=== PATIENT | male | born 1940 | race Two or more races ===

== ENCOUNTER 2018-04-24 09:45 | Outpatient (CLI) | payer OTHER ==
[~2018-04-24 09:45] MED LIST: ASA81 MG PO
== END 2018-04-24 09:56 | disposition home or self-care (01) ==
LOC: SONOGRAMA 09:45
DX: R10.2 Pelvic and perineal pain (principal); R19.7 Diarrhea, unspecified; K40.90 Unilateral inguinal hernia, without obstruction or gangrene, not specified as recurrent; N41.0 Acute prostatitis; I10 Essential (primary) hypertension; E78.89 Other lipoprotein metabolism disorders; M54.5 Low back pain; D64.89 Other specified anemias

== ENCOUNTER 2019-04-30 11:42 | Emergency (ER) | payer OTHER ==
[~2019-04-30] VITALS: Ht 172.7 cm; Wt 63.5 kg
== END 2019-04-30 12:56 | disposition home or self-care (01) ==
LOC: ER 11:42
DX: L02.212 Cutaneous abscess of back [any part, except buttock and flank] (principal); B37.89 Other sites of candidiasis; B96.89 Other specified bacterial agents as the cause of diseases classified elsewhere

== ENCOUNTER 2021-04-27 09:00 | Outpatient (CLI) | payer OTHER | END 2021-04-27 09:30 | disposition home or self-care (01) | LOC: PPH VACUNA 09:00 | PROVIDERS: ATTEND Emergency Medicine Pediatric Emergency Medicine | DX: Z23 Encounter for immunization (principal) ==

== ENCOUNTER 2021-10-16 08:00 | Outpatient (CLI) | payer OTHER | END 2021-10-16 08:30 | disposition home or self-care (01) | LOC: PPH VACUNA 08:00 | PROVIDERS: ATTEND Emergency Medicine Pediatric Emergency Medicine | DX: Z23 Encounter for immunization (principal) ==

== ENCOUNTER 2021-11-09 09:17 | Emergency (ER) | payer OTHER ==
[~2021-11-09] VITALS: Ht 167.6 cm; Wt 69.4 kg
== END 2021-11-09 11:42 | disposition home or self-care (01) ==
LOC: ER 09:17
DX: F41.9 Anxiety disorder, unspecified (principal); I10 Essential (primary) hypertension; Z88.0 Allergy status to penicillin

== ENCOUNTER 2022-07-02 10:17 | Outpatient (CLI) | payer OTHER | END 2022-07-02 10:32 | disposition home or self-care (01) | LOC: PPH VACUNA 10:17 | PROVIDERS: ATTEND Emergency Medicine Pediatric Emergency Medicine | DX: Z23 Encounter for immunization (principal) ==

== ENCOUNTER 2022-08-16 13:27 | Outpatient (CLI) | payer OTHER | END 2022-08-16 13:30 | disposition home or self-care (01) | LOC: NUCLEAR 13:27 | PROVIDERS: ATTEND Internal Medicine | DX: M81.0 Age-related osteoporosis without current pathological fracture (principal) ==

== ENCOUNTER 2022-12-12 10:30 | Emergency (ER) | payer OTHER ==
[~2022-12-12] VITALS: Ht 170.2 cm; Wt 61.2 kg
[2022-12-12] MEDS ORDERED: NORVASC2.5 M1 PO (10:37)
[2022-12-12] MEDS ORDERED: ATORVASTATIN CA10 MG PO (10:38)
[2022-12-12] MEDS ORDERED: TAMS0.4C PO (10:38)
[2022-12-12] MEDS ORDERED: FINASTERIDE1 MG PO (10:38)
[2022-12-12] MEDS ORDERED: ZYRTEC10 MG PO (12:46)
[2022-12-12] MEDS ORDERED: TUSNEL LIQUID178 ML PO (12:46)
== END 2022-12-12 12:52 | disposition home or self-care (01) ==
LOC: ER 10:30
DX: R05.9 Cough, unspecified (principal); N40.0 Benign prostatic hyperplasia without lower urinary tract symptoms; I10 Essential (primary) hypertension; Z20.822 Contact with and (suspected) exposure to COVID-19

== ENCOUNTER → 2023-01-03 | Emergency (ER) | payer OTHER ==
[~2023-01-03] VITALS: Ht 172.7 cm; Wt 62.6 kg
[~2023-01-03] MED LIST changes: +ATORVASTATIN CA10 MG PO; +CHILDREN'S ASPI81 MG PO; +FINASTERIDE1 MG PO; +NORVASC2.5 M1 PO; +TAMS0.4C PO; +TUSNEL LIQUID178 ML PO; +ZYRTEC10 MG PO
== END | disposition left against medical advice (07) ==
LOC: ER 14:02
DX: Z53.21 Procedure and treatment not carried out due to patient leaving prior to being seen by health care provider (principal)

== ENCOUNTER 2023-01-04 11:30 | Emergency (ER) | payer OTHER ==
[~2023-01-04] VITALS: Ht 172.7 cm; Wt 636.4 kg
[~2023-01-04 11:30] MED LIST changes: -CHILDREN'S ASPI81 MG PO
[2023-01-04] MEDS ORDERED: CHILDREN'S ASPI81 MG PO (12:05)
== END 2023-01-04 14:51 | disposition home or self-care (01) ==
LOC: ER 11:30
DX: S40.012A Contusion of left shoulder, initial encounter (principal); W22.8XXA Striking against or struck by other objects, initial encounter; Y93.01 Activity, walking, marching and hiking; Y92.480 Sidewalk as the place of occurrence of the external cause; Y99.9 Unspecified external cause status

== ENCOUNTER 2023-01-10 08:48 | Outpatient (CLI) | payer OTHER ==
[~2023-01-10 08:48] MED LIST changes: +CHILDREN'S ASPI81 MG PO
== END 2023-01-10 09:12 | disposition home or self-care (01) ==
LOC: MRI 08:48
PROVIDERS: ATTEND Otolaryngology Otology & Neurotology
DX: R42 Dizziness and giddiness (principal)
CPT/HCPCS: 70553; Q9965

== ENCOUNTER 2024-11-06 09:51 | Outpatient (CLI) | payer OTHER | END 2024-11-06 09:55 | disposition home or self-care (01) | LOC: NUCLEAR 09:51 | PROVIDERS: ATTEND Internal Medicine | DX: R42 Dizziness and giddiness (principal); I65.22 Occlusion and stenosis of left carotid artery ==

== ENCOUNTER 2024-12-15 14:05 | Outpatient (CLI) | payer OTHER | END 2024-12-15 14:17 | disposition home or self-care (01) | LOC: TOM 14:05 | PROVIDERS: ATTEND Internal Medicine | DX: R42 Dizziness and giddiness (principal); R29.6 Repeated falls ==

== ENCOUNTER 2024-12-28 14:33 | Outpatient (CLI) | payer OTHER | END 2024-12-28 14:45 | disposition home or self-care (01) | LOC: MRI 14:33 | PROVIDERS: ATTEND Internal Medicine | DX: R42 Dizziness and giddiness (principal) | CPT/HCPCS: 70551 ==

== ENCOUNTER 2025-05-06 11:01 | Emergency (ER) | payer OTHER ==
[~2025-05-06] VITALS: Ht 170.2 cm; Wt 62.6 kg
[2025-05-06] MEDS ORDERED: DEXAMETHASONE SODIUM PHOSPHATE 4 MG/ML VIAL IM STA (11:59)
[2025-05-06] MEDS ORDERED: KETOROLAC TROMETHAMINE 30 MG VIAL IM ONE (12:00)
[2025-05-06] MEDS ORDERED: DEXAMETHASONE SODIUM PHOSPHATE 4 MG/ML VIAL ONE ×2 (12:02→12:10)
[2025-05-06] MEDS ORDERED: TYLENOL ARTHRI650 MG PO (12:02)
[2025-05-06] MEDS ORDERED: KETOROLAC TROMETHAMINE 30 MG VIAL ONE (12:02)
== END 2025-05-06 13:04 | disposition home or self-care (01) ==
LOC: ER 11:02
DX: M79.605 Pain in left leg (principal); I10 Essential (primary) hypertension; N40.0 Benign prostatic hyperplasia without lower urinary tract symptoms
CPT/HCPCS: 96372; 99282; J1100; J1885

== ENCOUNTER 2025-06-04 11:12 | Outpatient (CLI) | payer OTHER ==
[~2025-06-04 11:12] MED LIST changes: +HORIZANT300 MG PO; +TYLENOL ARTHRI650 MG PO
== END 2025-06-04 11:26 | disposition home or self-care (01) ==
LOC: MRI 11:12
PROVIDERS: ATTEND Physical Medicine & Rehabilitation
DX: M54.16 Radiculopathy, lumbar region (principal)
CPT/HCPCS: 72148